=== PATIENT | male | born 1960 | race Caucasian/White ===

== ENCOUNTER → 2016-09-24 08:15 | Outpatient (CLI) | payer BC, OTHER | LOC: D.MRI 08:15 | DX: M25.561 Pain in right knee (principal) ==

== ENCOUNTER 2016-10-26 06:44 | Day surgery (SDC) | payer BC, OTHER ==
[~2016-10-26] VITALS: Ht 177.8 cm; Wt 99.8 kg
[2016-10-26 06:13] VITALS: BP 144/81; Ht 177.8 cm; Wt 99.8 kg
[~2016-10-26 06:44] MED LIST: KRILL OIL 1,001 EAC1 PO; LIPITOR20 MG PO; OMEPRAZOLE40 MG PO
[2016-10-26] MEDS ORDERED: TORADOL10 MG PO (08:23)
[2016-10-26] MEDS ORDERED: PERCOCET 5-3251 TAB PO (08:23)
--- NOTE | 2016-10-26 08:43 | NUR ---
RECIEVED PT FROM OR WITH ELIANA WRAP TO RT KNEE AND BILATERAL ASHLEY HOSE IN PLACE.
--- NOTE | 2016-10-26 10:34 | NUR ---
IV DC WITH CATHER TIP INTACT
--- NOTE | 2016-10-26 11:40 | NUR ---
[facility]45 [facility]
--- NOTE | 2016-10-26 15:50 | OP ---
PATIENT NAME: ADRIAN ALBERTO MEDICAL RECORD: [id number] LOCATION:[facility] ADMISSION DATE: SURGEON: ROBBIE SCOTT DO DATE OF OPERATION: 10/26/2016 PROCEDURES PERFORMED: Right knee arthroscopy with partial medial meniscectomy, partial synovectomy and medial femoral condyle chondroplasty. PREOPERATIVE DIAGNOSES: Right knee pain with medial meniscal tear. 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 INDICATIONS: Mr. Alberto is a 56-year-old male who has had right knee pain for some time. He had been complaining of catching and locking as well as pain with twisting actions. He had an MRI, which showed a medial meniscal tear as well as some chondromalacia. He debated about having the knee procedure done, but ultimately decided, due to the more meniscal symptoms that he would proceed forward with the procedure. He was informed of the risks and benefits of the procedure in the office and consented to the procedure. SURGEON: Robbie Scott DO. LEGAL INTERN: Benita Gibson, advanced nurse practitioner. DESCRIPTION OF PROCEDURE: The patient was seen in the preoperative area and consented and signed and marked. He was then taken to the operative suite, placed in supine position, given general anesthetic by anesthesia. The right leg was then prepped and draped and everyone paused for a timeout, the patient was given Ancef preoperatively for antibiotics, everyone was in agreement with the correct site of the procedure, so as the patient, and the procedure then commenced. After being prepped and draped in sterile fashion, the knee was flexed to about 90 degrees. A 0.5% Marcaine with epinephrine was then injected into the proposed portal sites on the medial and lateral side of the anterior knee and #11 blade scalpel was used to make the lateral portal site first. A trocar was entered into the knee to the suprapatellar pouch. Camera was then entered into the knee. There is some synovitis noted at that time and could not enter into the medial gutter at that time due to synovitis. The lateral gutter was then viewed and there were no loose bodies. There is one loose body in the suprapatellar pouch, which appeared to be a chondral flap probably from the medial femoral condyle. The knee was then inspected and the medial compartment was entered noting the medial femoral condyle had grade II chondromalacia and then back of the knee, meniscal tear was seen in the posterior horn extending from the posterior horn and to about the middle third of the meniscus. This was then trimmed out with a biter and shaver back to a stable state, this was probed and seen to be very stable, no loose pieces were noted after the probe. The medial femoral chondroplasty was then performed using the shaver. All the loose cartilage was carefully shaved away back to a stable spot. The inspection was then brought after some synovitis was removed in the anterior knee and some of the fat pad. The ACL was viewed, probed and seemed to be very taut and in good position. The probe was then stuck in the posterior knee between the ACL and the lateral compartment. The leg was then figured forward and the lateral compartment was entered with a viewing camera. There did not seem to have any meniscal tears or chondral damage in the lateral compartment. The meniscus was probed and seemed to be very stable and no tears were noted. The scope was then OPERATIVE REPORT [id number] ADRIAN ALBERTO brought up and the trochlea and the patella were viewed, did not see any loose cartilage at that time, then the knee was brought into extension and more synovium was removed at that time more from the medial side and once it was removed, the medial gutter was viewed and pictures were taken. I did not see any loose bodies in the medial gutter. The camera was then brought back up into the suprapatellar pouch. The loose body had been removed and the scope was then removed and excess water was suctioned out of the knee. The portal sites were then closed with 4-0 Monocryl in inverted interrupted fashion. The medial portal site was established once the medial compartment was being viewed with an 11-blade and a trocar was entered into that and then a shaver and so on and so forth. All these instruments obviously were removed and the portal sites were closed. Steri-Strip was placed over each portal site. Adaptic, 4 x 4s, ABD, Webril and John wrap were placed over the knee and a ASHLEY hose stocking was placed up to the knee. The patient was then awakened and taken to the PACU area in stable condition and the estimated blood loss was minimal. TRANSINT:[id number] Voice Confirmation ID: [id number] DOCUMENT ID: [id number] ROBBIE SCOTT DO at 1550 CC: [id number] DICTATION DATE: 10/26/16831 PEDIATRIC PHYSICAL THERAPY ASSISTANT: 10/26/16 1338 [facility] 10/26/16 [place] [id number] [place] [id number]
== END 2016-10-26 10:00 | disposition home or self-care (01) ==
LOC: D.OPS 06:44 → D.PAN 07:30 → D.OPS 10:00
DX: S83.206A Unspecified tear of unspecified meniscus, current injury, right knee, initial encounter (principal); M25.561 Pain in right knee; K21.9 Gastro-esophageal reflux disease without esophagitis; E66.9 Obesity, unspecified; Z68.31 Body mass index [BMI] 31.0-31.9, adult; Z01.812 Encounter for preprocedural laboratory examination; M94.261 Chondromalacia, right knee

== ENCOUNTER → 2017-01-31 10:58 | Outpatient (CLI) | payer BC, OTHER ==
[2016-10-26 06:13] VITALS: BMI 31.6
[~2017-01-31 10:58] MED LIST changes: +PERCOCET 5-3251 TAB PO; +TORADOL10 MG PO
== END | disposition home or self-care (01) ==
LOC: D.MRI 10:58
DX: M25.562 Pain in left knee (principal)